=== PATIENT | male | born 1950 | race Caucasian/White ===

== ENCOUNTER 2023-09-27 06:41 | Observation (INO) ==
--- NOTE | 2023-09-12 11:47 | PAT Medication Instructions ---
Medication Instructions Date of Service September 12, 2023 Home Medications acetaminophen 325 mg capsule 650 mg PO QID PRN ascorbic acid (vitamin C) 1,000 mg tablet,extended release (Vitamin C ER) 1,000 mg PO Q12H aspirin 81 mg tablet,delayed release 81 mg PO QAM empagliflozin 25 mg tablet (Jardiance) 25 mg PO QAM fexofenadine 180 mg tablet 180 mg PO DAILY PRN insulin degludec 100 unit/mL subcutaneous solution (Tresiba U-100 Insulin) 50 unit subcut QPM levothyroxine 75 mcg tablet 75 mcg PO QAM lisinopril 5 mg tablet 5 mg PO QAM metformin 500 mg tablet 1,000 mg PO BID omega 2-fyf-jfk-fish oil 150 mg-217 mg-840 mg capsule,delayed release (Fish Oil) 2 cap PO BID omeprazole 20 mg capsule,delayed release 20 mg PO DAILY PRN rosuvastatin 10 mg tablet (Crestor) 5 mg PO Q2D semaglutide 1 mg/dose (2 mg/1.5 mL) subcutaneous pen injector (Ozempic) 1 mg subcut WK STOP 7 days before surgery semaglutide 1 mg/dose (2 mg/1.5 mL) subcutaneous pen injector (Ozempic) 1 mg subcut WK STOP 3 days before surgery empagliflozin 25 mg tablet (Jardiance) 25 mg PO QAM Continue as directed rosuvastatin 10 mg tablet (Crestor) 5 mg PO Q2D omeprazole 20 mg capsule,delayed release 20 mg PO DAILY PRN(if needed) ASK your prescriber and surgeon aspirin 81 mg tablet,delayed release 81 mg PO QAM STOP taking 2 weeks before surgery (or as soon as possible if surgery is within 2 weeks) omega 2-fqu-sny-fish oil 150 mg-217 mg-840 mg capsule,delayed release (Fish Oil) 2 cap PO BID DO NOT take the morning of surgery metformin 500 mg tablet 1,000 mg PO BID lisinopril 5 mg tablet 5 mg PO QAM fexofenadine 180 mg tablet 180 mg PO DAILY PRN ascorbic acid (vitamin C) 1,000 mg tablet,extended release (Vitamin C ER) 1,000 mg PO Q12H Take morning of surgery With a small sip of water, OTHERWISE NOTHING TO EAT OR DRINK AFTER MIDNIGHT: levothyroxine 75 mcg tablet 75 mcg PO QAM acetaminophen 325 mg capsule 650 mg PO QID PRN(if needed) Take evening before surgery metformin 500 mg tablet 1,000 mg PO BID insulin degludec 100 unit/mL subcutaneous solution (Tresiba U-100 Insulin) 50 unit subcut QPM ascorbic acid (vitamin C) 1,000 mg tablet,extended release (Vitamin C ER) 1,000 mg PO Q12H acetaminophen 325 mg capsule 650 mg PO QID PRN(if needed) Other Notes If you have any questions please call us at [phone] or [phone] or [phone] or [phone]
--- NOTE | 2023-09-15 10:29 | Anesthesiology Consultation ---
Date of Service September 15, 2023 Assessment & Plan (1) Encounter for pre-operative examination: - Check BSG AM DOS - Infectious disease screening: Per assessment on 09/15/23: No known infectious disease contacts or current infectious disease symptoms. No noted Covid positive test result in past 90 days. - Outpatient joint assessment: Pt currently scheduled for inpatient pathway. If surgeon requests review for outpatient joint pathway, patient is an acceptable candidate for outpatient joint program from anesthesia standpoint pending surgeon's office assessment that patient is motivated, has good support and completes [facility] Day Joint Program preop requirements. - Cardiology visit (03/02/23): " He continues to be very active and walks close to 4 miles a day and notices no symptoms.. He did twist his left knee recently and has some discomfort and tells me that he is due to see a specialist in this regard.. He has excellent functional status for his age, has no cardiac symptoms and had a benign cardiac examination. I do not feel any testing is merited from a cardiac standpoint, currently. I shall defer management of hypertension and hyperlipidemia to you [PCP]. - Semaglutide/Ozempic instructions: Patient takes on Mondays. Patient informed at PAT visit to stop 7 days prior to surgery- voiced understanding. DOS 09/27. Advised last dose to be 09/19/23. Patient advised to check with prescriber to see if alternative diabetic management changes recommended while holding/restarting Semaglutide. Chart Review Chart Review: Acceptable Risk for Surgery and Patient seen in Pre Admission Testing Teaching & Discussion Pre-Anesthesia Teaching/Discussion Notes: Instructed NPO after midnight before surgery,except medications with 15 cc of water. Medication instructions provided according to the PAT guidelines. History Surgery Operation Date: 09/27/23 12:40 Proposed Procedures p Left Unicompartmental versus - Callum Otto MD s Total Knee Arthroplasty - Callum Otto MD Height/Weight Height: 5 ft 8 in Weight: 76.4 kg Allergies Allergy/AdvReac Type Severity Reaction Status Date / Time Iodinated Contrast Media Allergy Severe lip Verified 09/12/23 08:45 swelling Medications Home Medications Medication Instructions Recorded Confirmed Last Taken acetaminophen 325 mg capsule 650 mg PO QID PRN Pain 09/09/23 09/09/23 Unknown ascorbic acid (vitamin C) 1,000 mg 1,000 mg PO Q12H 09/09/23 09/09/23 Unknown tablet,extended release (Vitamin C ER) aspirin 81 mg tablet,delayed 81 mg PO QAM 09/09/23 09/09/23 Unknown release empagliflozin 25 mg tablet 25 mg PO QAM 09/09/23 09/09/23 Unknown (Jardiance) fexofenadine 180 mg tablet 180 mg PO DAILY PRN Allergy 09/09/23 09/09/23 Unknown Symptoms insulin degludec 100 unit/mL 50 unit subcut QPM 09/09/23 09/09/23 Unknown subcutaneous solution (Tresiba U-100 Insulin) levothyroxine 75 mcg tablet 75 mcg PO QAM 09/09/23 09/09/23 Unknown lisinopril 5 mg tablet 5 mg PO QAM 09/09/23 09/09/23 Unknown metformin 500 mg tablet 1,000 mg PO BID 09/09/23 09/09/23 Unknown omega 0-pil-zaq-fish oil 150 2 cap PO BID 09/09/23 09/09/23 Unknown mg-217 mg-840 mg capsule,delayed release (Fish Oil) omeprazole 20 mg capsule,delayed 20 mg PO DAILY PRN Acid Reflux 09/09/23 3 Unknown release rosuvastatin 10 mg tablet (Crestor) 5 mg PO Q2D 09/09/23 09/09/23 Unknown semaglutide 1 mg/dose (2 mg/1.5 1 mg subcut WK 09/09/23 09/09/23 Unknown mL) subcutaneous pen injector (Ozempic) Past Medical History Medical History Arthritis Diabetes mellitus, type 2 GERD (gastroesophageal reflux disease) Hyperlipidemia Hypertension Follows with cardiology/Dr. Zofia PAGE Hypothyroidism Exercise / Class Metabolic Activity II 4-5 Yardwork/Stairs/Walk up hill (one FS (no CP, no SOB)) Past Family History Family History Other No family history of adverse response to anesthesia Past Surgical History Surgical History History of cardiac cath +10 years ago- no stents History of cholecystectomy History of colonoscopy History of esophagogastroduodenoscopy (EGD) History of surgery jaw ("benign lump" removed) History of tooth extraction Nausea and vomiting after administration of anesthetic agent Past Anesthesia History No Family Hx of Anesthesia Complications and Other (Awareness with previous surgery*) History of PONV History of PONV (with cholecystectomy) and Hx of Motion Sickness Social History Smoking Status: Former smoker Do You Dip or Chew Tobacco: No Smoking End Date: Quit 1977 Hx Alcohol Use: No Hx Substance Use: No substance use type: does not use Review of Systems Patient denies chest pain, shortness of breath, dyspnea on exertion, fever, chills, cough, wheezing, palpitations. Physical Exam Vital Signs VITALS BP 126/80 P 81 TEMP 98.1 SP02 97%RA RESP 16 PHYSICAL Full cervical extension range of motion. Full TMJ range of motion. TMD 3 finger breaths Mallampati Score 1 Dentition: full upper/lower dentures Lungs: clear throughout to auscultation Cardiac: regular rate and rhythm, no murmurs noted Spine: normal Carotid arteries: negative bruit Extremities: no LE edema Lab Results Anesthesia Preop Results Results Anesthesia Widget: WBC 6.25 K/ul (4.8-10.8) 09/15/23 Hgb 16.5 g/dl (14.0-18.0) 09/15/23 Hct 48.3 % (42.0-52.0) 09/15/23 Plt 166 K/uL (130-400) 09/15/23 PT 11.4 Seconds (9.0-12.0) 09/15/23 PTT 29.4 Seconds (21.0-31.0) 09/15/23 INR 1.0 (0.9-1.1) 09/15/23 Blood Type B Positive 09/15/23 Antibody Screen NEGATIVE 09/15/23 Testing Laboratory Results 09/09/23 SODIUM 135 POTASSIUM 4.0 CHLORIDE 103 CO2 25.8 BUN 15.9 CREATININE 1.16 GLUCOSE 143 TSH 1.890 HGBA1C 7.2% Electrocardiogram Date: 03/02/23 SR at 78bpm. Non pathologic Q waves- inferior/lateral. Chest X-Ray Date: 09/15/23 FINDINGS: Cardiomediastinal and hilar silhouettes are within normal limits. Mild hyperinflation with diaphragmatic flattening. No pneumothorax, pleural effusion, airspace consolidation or pulmonary edema. Bones appear grossly intact. Cholecystectomy. IMPRESSION: No acute process.
[~2023-09-27 06:41] MED LIST: ACETAMINOPHEN 500 MG TAB PO SCH; BUPIVACAINE 0.25% PF 30 ML VIAL ONE; BUPIVACAINE 0.5 % 5 MG/1 ML PF 10ML VIAL ONE; BUPIVACAINE LIPOSOME/PF 266 MG, BUPIVACAINE/EPINEPHRINE 50 ML, SODIUM CHLORIDE 0.9% PF ... INFIL SCH; CeleBREX 200 MG CAP PO SCH; FAMOTIDINE 20 MG TAB PO SCH; LR 500ML BOLUS, THEN 15ML/HR IV SCH; LR 60ML/HR IV SCH; METOCLOPRAMIDE HCL 10 MG TABLET PO SCH; TRANEXAMIC ACID 1,000 MG **IV Intra-op IV SCH; ceFAZolin 2000MG 2,000 MG/15 ML SYR IV SCH
--- NOTE | 2023-09-27 06:49 | History & Physical Bridge Note ---
Date of Service September 27, 2023 History & Physical Bridge Note I have examined the patient, reviewed the History & Physical and in the interval since the performance of the History & Physical I have noted the following changes of clinical significance: no changes noted
[2023-09-27] MEDS ORDERED: MIDAZOLAM HCL 1 MG/ML 2ML VIAL ONE (07:21)
[2023-09-27] MEDS ORDERED: fentaNYL citrate PF 100 MCG/2 ML VIAL ONE (07:21)
[2023-09-27] MEDS ORDERED: ePHEDrine sulfate 50 MG/ML AMP IV PRN (08:14)
[2023-09-27] MEDS ORDERED: ATROPINE SULFATE 0.1 MG/ML 10ML SYR IV PRN (08:14)
[2023-09-27] MEDS ORDERED: fentaNYL citrate PF 100 MCG/2 ML VIAL IV PRN (08:14)
[2023-09-27] MEDS ORDERED: SCOPOLAMINE 1 MG TDSY TD STA (08:14)
[2023-09-27] MEDS ORDERED: ONDANSETRON INJ 2 MG/ML 2 ML VIAL IV PRN ×2 (08:14→13:21)
[2023-09-27] MEDS ORDERED: SODIUM CHLORIDE 0.9% PF 50 ML VIAL ONE (08:48)
[2023-09-27] MEDS ORDERED: BUPIVACAINE/EPINEPHRINE 0.25% 1:200,000 30 ML VIAL ONE (08:48)
[2023-09-27] MEDS ORDERED: BUPIVACAINE LIPOSOME 1.3% 266 MG/20 ML VIAL ONE (08:48)
[2023-09-27] MEDS ORDERED: PROPOFOL IV EMULSION 10 MG/ML 20 ML VIAL IV ONE (09:19)
[2023-09-27] MEDS ORDERED: DEXAMETHASONE SOD INJ 4 MG/ML VIAL ONE (09:32)
--- NOTE | 2023-09-27 10:57 | Operative Report ---
PG Post Operative Report Pre & Post Diagnosis Operation Date: 09/27/23 08:50 Pre-Op Diagnosis: Left Knee Degenerative Joint Disease Post-Op Diagnosis: Left Knee Degenerative Joint Disease I identified the patient and participated in the time-out.: Yes Procedure Operation Date: 09/27/23 08:50 Actual Procedures p Left Unicompartmental Knee Arthroplasty(Left) - Callum Otto MD Surgeon Callum Otto MD Cotton Classer Noe Lockwood PA-C Estimated Blood Loss 25 Findings Consistent with Post-Op Diagnosis Operative findings with advanced left knee medial compartment arthritis. Full- thickness cartilage loss within the medial femoral condyle. Small to moderate- sized knee joint effusion. His patellofemoral and lateral compartments were quite pristine. Specimens Left knee sent for pathology Anesthesia Type Spinal MAC Complications none Disposition Accompanied Patient To Recovery: No Indications Patient is a 73-year-old gentleman whose had about a 6+ month history of left knee pain discomfort is gotten worse over time. Been to extensive conservative treatment became less successful over time. X-rays show advanced medial compartment arthritis which has progressed over the past several months. He kayla cted proceed with surgical treatment/partial knee replacement. Description of Procedure Operative implants consist of: 1. Biomet Noble medium unicompartmental distal femoral component. 2. Biomet Noble left medial size C tibial tray. 3. 4 mm mobile-bearing polyethylene insert. The patient was taken the operating, identified, and placed on the operating table supine position architectures were properly padded. IV antibiotics tried by anesthesia team. A spinal anesthetic and abductor canal block had been divided holding area. A left thigh turn was then placed. Left lower extremity then prepped and draped in usual sterile fashion. The left leg was elevated and exsanguinated with use of an Esmarch and the tourniquet was placed at 300 mmHg. An anterior medial approach of the left knee was then performed through a longitudinal incision beginning at the superior medial pole of the patella and extending just medial to the tibial tubercle. Sharp dissection was carried through subcutaneous tissues down to the extensor mechanism. The subcutaneous tissue was mobilized circumferentially. A medial parapatellar arthrotomy incision was made. Some subperiosteal dissection was carried out medially taking great care to protect the MCL ligament. The fat pad was resected inferior. I then examined the lateral and patellofemoral compar tments they look quite pristine. We elected proceed with a partial knee replacement. The femur was sized to a size medium. The medium spoon was placed. It was attached to the external tibial guide with a 4G clamp. The proximal tibial cut was then made. That the tibia sized to a size C. Attention drawn the femur. The distal femur was entered with the sharp drill. The intramedullary monalisa was placed. A medium femoral component template was then placed and attached to the IM monalisa. The holes were drilled for the femoral component. The posterior cutting guide was placed and a posterior cut was made. The 0 spigot was placed in distal femur was milled. I then trialed the knee and the 4 feeler gauge fit well on flexion and the 2 in extension. Therefore, the 2 spigot was used to milled the distal femur again. We trialed the knee and the 4 feeler gauge fit appropriate in flexion extension. We elect to place these implants. Of note I did resect the medial meniscus. The distal femoral preparation guide was placed. The anterior aspect of the femur was milled. The posterior osteophyte was removed. The tibial tray was pinned in place. The toothbrush sawblade was used to cut the hole in the proximal tibia for the keel. We then trialed the knee 1 more time with the keel the tibial tray. The 4 insert fit appropriately. We elect to place these implants. All trial implants were removed. Did drill some holes in the distal femur for cement interdigitation. We irrigated the wound extensively. A single batch [place] G cement was mixed. A left medium femoral component, a left medial size C tibial tray were then cemented in place. All extraneous cement was removed. I placed a 4 feeler gauge in the knee and brought the knee out and about 40 degrees short of full extension till cement hardened. Final cement check was then performed. We trialed the knee 1 more time and the 4 insert fit appropriately. The permanent 4 insert plate was placed. The wound was irriga garret. I did inject locally with 100 cc of combination of 20 cc of Exparel, 30 cc normal saline, 50 cc of quarter percent Marcaine with epinephrine. Patient did receive 1 g tranexamic acid. The tourniquet was then let down for final turn time 57 minutes. Hemostasis surgeries electrocautery. The extensor mechanism then closed with #1 Vicryl suture in a [id number] fashion. The extensor mechanism checked found to be intact and the subcutaneous tissue then closed with 2 Dexon suture in buried interrupted fashion skin was closed skin magnus. Leg was then cleaned and dried and sterile dressed with Xeroform, 4 fours, sterile cast padding, Anders bandage were applied. Patient then transferred to the recovery room in stable condition. Patient tolerated procedure well and there were no complications. Noe Lockwood, my physician hotel assistant general manager, was present for the entire procedure. His assistance was essential and required for appropriate patient positioning, prepping and draping, surgical exposure, performing the technical details of the operation, placement the implants, closure of the wound, and placement of the sterile bandage. I attest to the content of the Intraoperative Record and any orders documented therein. Any exceptions are noted below.
--- NOTE | 2023-09-27 11:48 | XRay Report ---
XR knee LT 1 or 2V routine CLINICAL HISTORY: Left knee prosthesis. Postop. COMPARISON STUDY: None. FINDINGS: Status post placement of a medial unicondylar left knee prosthesis. The hardware appears in tact. No fracture or dislocation within the left knee. Skin magnus are in place. IMPRESSION: Status post left knee medial unicondylar prosthesis. No evidence for hardware complicati on. ACT 112: Negative or not required by law. Electronically signed by: Jose Carlos Jackson M.D. 09/27/2023 11:46 AM
[2023-09-27] MEDS ORDERED: MAGNESIUM HYDROXIDE SUSP 30 ML UDC PO PRN (13:21)
[2023-09-27] MEDS ORDERED: GLUCOSE 40% GEL 15 GM TUBE PO PRN (13:21)
[2023-09-27] MEDS ORDERED: NALOXONE HCL 0.4 MG/1 ML VIAL/CARP IV PRN (13:21)
[2023-09-27] MEDS ORDERED: GLUCAGON FOR INJ 1 MG VIAL SQ PRN (13:21)
[2023-09-27] MEDS ORDERED: bisacodyL 10 MG SUPP PR PRN (13:21)
[2023-09-27] MEDS ORDERED: METOCLOPRAMIDE HCL INJ 5 MG/ML 2 ML VIAL IV PRN (13:21)
[2023-09-27] MEDS ORDERED: HYDROmorphone INJ 0.5 MG/0.5 ML SYR IV PRN (13:21)
[2023-09-27] MEDS ORDERED: FEXOFENADINE HCL 180 MG TAB PO PRN (13:21)
[2023-09-27] MEDS ORDERED: ONDANSETRON 4 MG OD TAB PO PRN (13:21)
[2023-09-27] MEDS ORDERED: traMADol HCL 50 MG TABLET PO PRN (13:21)
[2023-09-27] MEDS ORDERED: NON-FORMULARY MEDICATION (Ascorbic Acid (Vitamin C) [Vitamin C] 1,000 mg Tablet Extended R PO SCH (13:21)
[2023-09-27] MEDS ORDERED: GLUCOSE 10 TAB/TUBE PO PRN (13:21)
[2023-09-27] MEDS ORDERED: DEXTROSE 50% 50 ML SYRINGE IV PRN (13:21)
[2023-09-27] MEDS ORDERED: ALUMINUM/MAGNESIUM SUSP 30 ML UDC PO PRN (13:21)
[2023-09-27] MEDS ORDERED: CARBOHYDRATES FOR HYPOGLYCEMIA PO PRN (13:21)
[2023-09-27] MEDS ORDERED: PHARMACY GLYCEMIC MGMT CONSULT PRN (13:21)
[2023-09-27] MEDS ORDERED: NON-FORMULARY MEDICATION (Semaglutide [Ozempic] 1 mg/dose (2 mg/1.5 mL) Pen Injector) SQ SCH (13:21)
[2023-09-27] MEDS ORDERED: PANTOprazole 40 MG TAB PO PRN (13:33)
[2023-09-27] MEDS: SODIUM CHLORIDE 0.9% 1,000 ML IV SCH (13:47)
--- NOTE | 2023-09-27 13:47 | Anesthesiology Progress Note ---
Date of Service September 27, 2023 Anesthesia Post Procedure Vital Signs Vital Signs: Temp Pulse Pulse Resp BP Pulse Ox O2 Del Method 09/27/23 13:10 36.5 C 79 17 123/75 Room Air 09/27/23 12:45 36.7 C 77 20 137/74 99 Room Air 09/27/23 12:30 36.7 C 70 10 L 126/82 100 Room Air 09/27/23 12:20 74 19 130/81 100 Room Air 09/27/23 12:10 36.7 C 75 22 123/89 100 Room Air 09/27/23 12:00 36.7 C 72 13 122/72 98 Room Air 09/27/23 11:50 68 9 L 127/78 93 Room Air 09/27/23 11:40 36.7 C 76 9 L 128/79 95 Room Air 09/27/23 11:30 75 13 123/78 99 Room Air 09/27/23 11:20 75 20 122/80 96 Room Air 09/27/23 11:10 74 15 107/86 97 Oxymask 09/27/23 11:00 75 12 117/82 99 Oxymask 09/27/23 10:54 36.9 C 78 14 110/68 96 Oxymask 09/27/23 07:37 36.7 C 78 20 140/86 97 Room Air O2 Flow Rate 09/27/23 13:10 09/27/23 12:45 09/27/23 12:30 09/27/23 12:20 09/27/23 12:10 09/27/23 12:00 09/27/23 11:50 09/27/23 11:40 09/27/23 11:30 09/27/23 11:20 09/27/23 11:10 1 09/27/23 11:00 3 09/27/23 10:54 5 09/27/23 07:37 Transfer of Care Handoff Completed per policy Notes Mental Status: alert / awake / arousable Patient Amnestic to Procedure: Yes Nausea / Vomiting: adequately controlled Pain: adequately controlled Airway Patency, RR, SpO2: stable & adequate BP & HR: stable & adequate Hydration State: stable & adequate Neuraxial Anesthesia: was administered and sensory block is resolving Anesthetic Complications: no major complications apparent and Pt Satisfied with anesthetic care
--- NOTE | 2023-09-27 14:28 | Pharmacy Report ---
Pharmacy Glycemic Short Note 2 - Date of Service September 27, 2023 - Glycemic Short BSG Results (Last 24 hours): 09/27/23 09/27/23 09/27/23 08:11 10:57 13:31 POC Glucose 121 H 87 116 H OUTPATIENT ANTIDIABETIC REGIMEN: * Jardiance 25 mg PO QAM * Tresiba 50 units SQ QPM * Metformin 1g PO BID * Ozempic 1 mg SQ weekly ASSESSMENT: * 73 y/o M admitted for L TKA. Patient has history of type 2 diabetes managed on multiple anti-diabetic meds at home including basal insulin once daily. * Patient received 8 mg IV Dexamethasone during surgery this morning, which is expected to cause BSG to trend upwards this evening. * Basal dose of insulin reduced by 20% from home dose started for this evening with dinner to mimic home regimen. * Novolog ordered based on stress of 3 due to steroids on board. PLAN FOR INPATIENT GLYCEMIC CONTROL: * Hold outpatient diabetes medications * Basal insulin * Lantus 40 units SQ daily @ 18:00 * Bolus insulin * NovoLog per scale ACHS or Q6hrs while NPO. Added ,04 checks * Goal Range: Low 110 mg/dL - High 140 mg/dL * Correction Factor: 20 mg/dL/unit * Nutritional / Prandial insulin per carb ratio of 1 unit per 6 grams CHO consumed
[2023-09-27 14:44] VITALS: RESP 16
[2023-09-27] MEDS: ACETAMINOPHEN 500 MG TAB PO SCH ×2 (14:52→22:03)
[2023-09-27] MEDS: CHECK SCOPOLAMINE PATCH PLACEMENT SCH (16:58)
[2023-09-27] MEDS ORDERED: TRANEXAMIC ACID / 0.7% NACL 1,000 MG/100 ML BAG IV SCH (17:00)
[2023-09-27] MEDS: ASCORBIC ACID 500 MG TAB PO SCH (17:02)
[2023-09-27] MEDS: KETOROLAC TROMETHAMINE 15 MG/ML VIAL IV SCH ×2 (17:03→22:06)
[2023-09-27] MEDS: INSULIN ASPART PER UNIT CHARGE SC SCH ×2 (17:17→22:01)
[2023-09-27] MEDS: ceFAZolin 1000MG 1,000 MG/7.5 ML SYR IV SCH (17:19)
[2023-09-27] MEDS ORDERED: LANTUS PER UNIT CHARGE SC SCH (18:00)
[2023-09-27] MEDS ORDERED: ROSUVASTATIN CALCIUM 5 MG TAB PO SCH (18:00)
[2023-09-27] MEDS ORDERED: INSULIN DEGLUDEC 100 UNIT/ML SQ SCH (21:00)
[2023-09-27] MEDS ORDERED: [UNRECOGNIZED DRUG - OTHER] SQ SCH (21:00)
[2023-09-27] MEDS ORDERED: SENNA 8.6 MG TAB PO SCH ×2 (21:00)
[2023-09-27] MEDS: ASPIRIN 81 MG ECTAB PO SCH (22:04)
[2023-09-27] MEDS: DOCUSATE SODIUM 100 MG CAP PO SCH (22:04)
[2023-09-27] MEDS: OMEGA-3 (PURIFIED FISH OIL) 1 GM CAP PO SCH (22:05)
[2023-09-28] MEDS: SODIUM CHLORIDE 0.9% 1,000 ML IV SCH (00:40)
[2023-09-28] MEDS: INSULIN ASPART PER UNIT CHARGE SC SCH ×3 (00:46→08:59)
[2023-09-28] MEDS: ceFAZolin 1000MG 1,000 MG/7.5 ML SYR IV SCH (00:50)
[2023-09-28] MEDS: CHECK SCOPOLAMINE PATCH PLACEMENT SCH ×2 (00:50→09:01)
[2023-09-28] MEDS: KETOROLAC TROMETHAMINE 15 MG/ML VIAL IV SCH (04:04)
[2023-09-28 04:40] VITALS: O2SAT 98
[2023-09-28] MEDS ORDERED: LEVOTHYROXINE SODIUM 75 MCG TABLET PO SCH (06:30)
[2023-09-28 07:31] LABS: Hematocrit (blood only) 45.4 % (42.0-52.0); Hemoglobin 15.7 g/dl (14.0-18.0); Mean Corpuscular Hemoglobin 29.7 pg (25.0-34.0); Mean Corpuscular Hgb Conc 34.6 g/dL (32.0-36.0); Mean Corpuscular Volume 85.8 fL (80.0-100.0); Mean Platelet Volume 9.9 fL (9.4-12.4); Platelet Count 160 K/uL (130-400); RDW Coefficient of Variation 13.8 % (11.5-14.5); RDW Standard Deviation 42.8 fL (36.4-46.3); Red Blood Count 5.29 M/uL (4.70-6.10); White Blood Count 11.21 K/ul (4.8-10.8)
[2023-09-28 07:54] LABS: Estimated Average Glucose 163 mg/dl; Hemoglobin A1C 7.3 % (4.5-5.6)
[2023-09-28 07:58] VITALS: BP 130/70; PULSE 68; TEMP 97.5
[2023-09-28 08:26] LABS: Potassium 3.8 mmol/L (3.5-5.1)
[2023-09-28 08:32] LABS: Creatinine Clr Calc Pharmacy 65.6 ml/min; Est GFR (African American) 87.4 ml/min; Est GFR (Non-African American) 75.4 ml/min
[2023-09-28] MEDS ORDERED: lisinopril 5 MG TAB PO SCH (09:00)
[2023-09-28] MEDS: ASCORBIC ACID 500 MG TAB PO SCH (09:00)
[2023-09-28] MEDS ORDERED: MULTIVITAMIN TAB PO SCH (09:00)
[2023-09-28] MEDS ORDERED: TAMSULOSIN HCL 0.4 MG CAP PO SCH (09:00)
[2023-09-28] MEDS ORDERED: EMPAGLIFLOZIN 25 MG TAB PO SCH (09:00)
[2023-09-28] MEDS: ACETAMINOPHEN 500 MG TAB PO SCH (09:01)
[2023-09-28] MEDS: ASPIRIN 81 MG ECTAB PO SCH (09:02)
[2023-09-28] MEDS: OMEGA-3 (PURIFIED FISH OIL) 1 GM CAP PO SCH (09:03)
[2023-09-28] MEDS: DOCUSATE SODIUM 100 MG CAP PO SCH (09:03)
--- NOTE | 2023-09-28 12:44 | Surgery Progress Note ---
Date of Service September 28, 2023 Assessment & Plan (1) Status post left partial knee replacement: Plan: 73-year-old gentleman postop day 1 from a left partial knee replacement doing well. Pain is controlled. His therapy is going well. No chest pain or shortne ss of breath. He is neurologically intact. Plan: 1. DVT prophylaxis including thigh-high teds, SCDs, aspirin twice a day. 2. PT/OT. Weight-bear as tolerated. Left total knee protocol. 3. Pain control doing well with current pain regimen. Really not have much pain to speak of. 4. Disposition plan to discharge home with some home health today Admission and Anticipated Discharge Date Admission Date: September 27, 2023 Subjective 73-year-old gentleman postop day 1 from a partial knee replacement. He is doing well. He denies any significant pain. He is going through therapy currently and walking well with a walker quite well. He is hoping to go home. No chest pain or shortness of breath. Not feeling dizzy or lightheaded. Physical Exam Physical Exam: Physical exam shows a pleasant elderly male. He was walking in the hallway with the therapist when I visited him today. He is walking quite well with the use of a walker. His dressing is clean dry and intact he can dorsiflex and plantarflex his foot appropriately. He can do a good straight leg raise. He is neurologically intact. Respiratory: normal respiratory effort, lungs clear to auscultation Cardiovascular: RRR, no murmur, no edema Gastrointestinal (Abdomen): normal bowel sounds, soft, nontender, no hepatosplenomegaly Results & Data Vital Signs (Past 12 Hours) Vital Signs Temp Pulse Pulse Resp BP Pulse Ox O2 Del Method 09/28/23 11:57 36.4 C L 77 68 16 130/70 98 09/28/23 07:57 36.4 C L 68 16 130/70 98 Room Air 09/28/23 04:38 36.5 C 70 16 136/85 98 Room Air 09/28/23 00:43 36.5 C 72 16 143/71 H 97 Room Air Laboratory Results Hemoglobin is 15.7. Hematocrit is 45.2. Electrolytes are stable. PG Care Time/CCT Total # of Minutes Spent Total Time Spent with Patient: Total time spent is greater than 50% in coordination of care (as documented) at patient's floor/unit and/or counseling patient: Coding Level of Care Code None Diagnoses Status post left partial knee replacement Z96.652
[2023-09-28] MEDS ORDERED: LANTUS PER UNIT CHARGE SC SCH (18:00)
--- NOTE | 2023-09-29 09:07 | Discharge Summary ---
Date of Service September 29, 2023 Discharge Data Procedures Performed Operation Date: 09/27/23 08:50 Actual Procedures p Left Unicompartmental Knee Arthroplasty(Left) - Callum Otto MD Hospital Course (1) Status post left partial knee replacement: This is a 73 year old patient admitted on 09/27/23 and underwent partial knee replacement. He tolerated the procedure well and there were no complications. Transferred to the PACU post op and later to the orthopedic floor for further care. He was given ancef for antibiotic prophylaxis. He was also given CHIDI stockings, SCDs, and aspirin for DVT prophylaxis. Hemoglobin, hematocrit, and vital signs were monitored during his hospital stay and remained stable. Did not require any blood transfusions. There were no complications during his hospital stay. By post op day #1 the patient was tolerating a diabetic diet, pain was reasonably controlled with oral pain medicine, and he was participating in physical therapy. On post op day #1 the patient was discharged home and set up with home health care. He was given printed discharge instructions including prescriptions for extra strength tylenol, aspirin, ketorolac, zofran, senokot, flomax, and tramadol. Continue physical therapy, weight bearing as tolerated. Continue CHIDI stockings. Follow up approximately 2 weeks post op or sooner if there are problems or concerns. Coding Level of Care Code None Diagnoses Status post left partial knee replacement Z96.652
== END 2023-09-28 12:50 | disposition home health service (06) ==
LOC: ASU 06:41 → 3E 06:41
DX: K21.9 Gastro-esophageal reflux disease without esophagitis; Z79.84 Long term (current) use of oral hypoglycemic drugs; Z79.1 Long term (current) use of non-steroidal anti-inflammatories (NSAID); M71.22 Synovial cyst of popliteal space [Baker], left knee; M65.9 Synovitis and tenosynovitis, unspecified; Z87.891 Personal history of nicotine dependence; Z79.85 Long-term (current) use of injectable non-insulin antidiabetic drugs; I10 Essential (primary) hypertension; Z79.4 Long term (current) use of insulin; Z79.52 Long term (current) use of systemic steroids; Z79.82 Long term (current) use of aspirin; M23.204 Derangement of unspecified medial meniscus due to old tear or injury, left knee; Z91.041 Radiographic dye allergy status; E11.9 Type 2 diabetes mellitus without complications; Z79.899 Other long term (current) drug therapy; E78.5 Hyperlipidemia, unspecified; Z79.890 Hormone replacement therapy; M25.462 Effusion, left knee; M17.12 Unilateral primary osteoarthritis, left knee